=== PATIENT | male | born 1940 | race Caucasian/White ===

== ENCOUNTER → 2022-01-17 | Outpatient (CLI) | payer MEDICARE, MEDICAID ==
[~2022-01-17] MED LIST: DAPAGLIFLOZIN PO; LEVO75TA7 PO; PIOG1TAB7 PO; SIMV-43 PO
== END | disposition home or self-care (01) ==
LOC: LAB 11:00
PROVIDERS: ATTEND Specialist
DX: Z01.812 Encounter for preprocedural laboratory examination (principal); R05.9 Cough, unspecified; Z20.822 Contact with and (suspected) exposure to COVID-19
CPT/HCPCS: 87426; C9803

== ENCOUNTER → 2022-01-25 | Day surgery (SDC) | payer MEDICARE, MEDICAID ==
[~2022-01-25] VITALS: Ht 157.5 cm; Wt 72.1 kg
[~2022-01-25] MED LIST changes: +ACETAMINOPHEN 325MG TABLET PO PRN; +AMLO5TAB4 PO; +ASPI-1406 PO; +ASPIRIN/SOD BICARB/CITRIC ACID 324MG TAB EFF ONE; +ATOR80TA PO; +BEMP1TAB; +CLOP-31 PO; +DAPA10TA PO; +EZET10TA13 PO; +FENTANYL CITRATE/PF 50MCG/ML 2ML VIAL ONE; +HEPARIN SODIUM 1,000 UNIT/1ML VIAL IV ONE; +IODIXANOL 320MG/ML 100 ML BOTTLE IV ONE; +LIDOCAINE HCL 1% 10 MG/ML 10ML VIAL ONE; +LISI10TA26 PO; +METF-415 PO; +MIDAZOLAM HCL 2 MG/2 ML VIAL ONE; +MORPHINE SULFATE 2 MG/ML CPJ (NOT FOR IM USE) IV PRN; +NALOXONE HCL 0.4MG/ML VIAL IV PRN; +NICARDIPINE 100MCG/ML 10ML VIAL (CATH LAB) IV ONE; +NITROGLYCERIN 50MCG/ML 10ML VIAL (CATH LAB) IV ONE; +ONDANSETRON HCL 4MG/2ML INJ IV PRN
[2022-01-25 09:20] LABS: CHLORIDE 108 mEq/L (98-107)
== END | disposition home or self-care (01) ==
LOC: CCL 05:51
PROVIDERS: ATTEND Specialist
DX: I25.10 Atherosclerotic heart disease of native coronary artery without angina pectoris (principal); E11.9 Type 2 diabetes mellitus without complications; E78.5 Hyperlipidemia, unspecified; I10 Essential (primary) hypertension; J44.9 Chronic obstructive pulmonary disease, unspecified; I77.9 Disorder of arteries and arterioles, unspecified; F17.210 Nicotine dependence, cigarettes, uncomplicated; Z79.82 Long term (current) use of aspirin; Z79.84 Long term (current) use of oral hypoglycemic drugs; Z79.899 Other long term (current) drug therapy; Z98.890 Other specified postprocedural states; Z20.822 Contact with and (suspected) exposure to COVID-19
CPT/HCPCS: 36415; 80048; 87426; 93458; 93571; C1769; C1887; C1893; J1644; J2250; J3010; J3490; Q9967